=== PATIENT | female | born 1980 | race Two or more races ===

== ENCOUNTER 2018-10-08 15:52 | Emergency (ER) | payer MEDICAID, OTHER ==
[~2018-10-08] VITALS: Ht 160 cm; Wt 73.0 kg
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
[2018-10-08] MEDS ORDERED: ACETAMINOPHEN ES 500 MG TABLET ONE (16:26)
[2018-10-08] MEDS ORDERED: ACETAMINOPHEN 325 MG TABLET PO ONE (16:30)
--- NOTE | 2018-10-08 18:14 | NUR ---
Patient is resting comfortably in bed with eyes closed. Easily aroused. VSS
--- NOTE | 2018-10-08 19:00 | NUR ---
PT AFRAID TO GO HOME. WOULD LIKE TO SPEAK WITH [employer]. WILL STAY OVERNIGHT UNTIL SHE CAN BE SEEN IN THE MORNING. WILL CONT TO OBSERVE.
--- NOTE | 2018-10-08 20:24 | NUR ---
Patient is resting comfortably in bed with eyes closed. Easily aroused. VSS
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
[2018-10-08] MEDS ORDERED: LORAZEPAM 0.5 MG TABLET ONE (22:15)
[2018-10-08] MEDS ORDERED: LORAZEPAM 1 MG TABLET PO ONE (22:30)
--- NOTE | 2018-10-09 03:34 | NUR ---
Patient is resting comfortably in bed with eyes closed. Easily aroused. VSS
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
--- NOTE | 2018-10-09 08:45 | NUR ---
ANKUR, FINANCIAL ADVISER AT FOR EVAL.
[2018-10-09 09:41] VITALS: BP 115/65
--- NOTE | 2018-10-09 09:42 | NUR ---
Patient discharged to [address] [place] [id number] via taxi in stable condition. Written and verbal after care instructions given. Patient verbalizes understanding of instruction.
== END 2018-10-09 09:44 | disposition home or self-care (01) ==
LOC: ER 15:55
DX: S09.8XXA Other specified injuries of head, initial encounter (principal); Z59.0 Homelessness; Y04.0XXA Assault by unarmed brawl or fight, initial encounter; Y93.89 Activity, other specified; Y92.89 Other specified places as the place of occurrence of the external cause; Y99.8 Other external cause status
CPT/HCPCS: 70450-TC; 84703-TC